=== PATIENT | female | born 1990 | race Caucasian/White ===

== ENCOUNTER → 2021-09-02 | Outpatient (CLI) | payer OTHER ==
[~2021-09-02] MED LIST: ALL DAY ALLERGY10 M2 PO; COLACE 100MG C100 MG PO; IBUPROFEN600 MG PO; LORTAB 5-325 M1 EACH PO
== END ==
LOC: KOH-I 10:44
DX: R05.9 Cough, unspecified (principal)
CPT/HCPCS: 71046

== ENCOUNTER 2021-11-10 12:54 | Outpatient (CLI) | payer OTHER | END 2021-11-10 14:20 | disposition home or self-care (01) | LOC: GENOP 12:54 | DX: O99.891 Other specified diseases and conditions complicating pregnancy (principal); R10.9 Unspecified abdominal pain; Z3A.36 36 weeks gestation of pregnancy | CPT/HCPCS: G0463 ==

== ENCOUNTER 2021-12-07 16:39 | Inpatient (IN) | payer OTHER ==
[~2021-12-07] VITALS: Ht 165.1 cm; Wt 87.5 kg
[2021-12-07 18:26] LABS: HEMOGLOBIN 11.6 gm/dl (12.3-15.3); RED BLOOD COUNT 4.21 M/UL (4.00-5.10); WHITE BLOOD COUNT 11.5 K/UL (4.5-11.0)
[2021-12-07] MEDS ORDERED: FLAGYL 250 MG250 MG PO (18:55)
[2021-12-08] MEDS ORDERED: HEMOCYTE324 MG PO (15:00)
[2021-12-08] MEDS ORDERED: IBUPROFEN800 MG PO (15:00)
[2021-12-09 05:38] LABS: HEMOGLOBIN 10.4 gm/dl (12.3-15.3)
== END 2021-12-09 16:33 | disposition home or self-care (01) | DRG 807 ==
LOC: GENOP 16:39 → CDU 16:58 → OB 16:58
PROVIDERS: Obstetrics & Gynecology; ADMIT Obstetrics & Gynecology
PROC: 4A1HXCZ Monitoring of Products of Conception, Cardiac Rate, External Approach (ICD-10-PCS; 2021-12-07)
PROC: 10E0XZZ Delivery of Products of Conception, External Approach (ICD-10-PCS; principal; 2021-12-08)
PROC: 3E033VJ Introduction of Other Hormone into Peripheral Vein, Percutaneous Approach (ICD-10-PCS; 2021-12-08)
PROC: 10907ZC Drainage of Amniotic Fluid, Therapeutic from Products of Conception, Via Natural or Artificial Opening (ICD-10-PCS; 2021-12-08)
PROC: 3E0234Z Introduction of Serum, Toxoid and Vaccine into Muscle, Percutaneous Approach (ICD-10-PCS; 2021-12-08)
DX: O98.32 Other infections with a predominantly sexual mode of transmission complicating childbirth (principal); Z37.0 Single live birth; O99.344 Other mental disorders complicating childbirth; F41.9 Anxiety disorder, unspecified; Z3A.39 39 weeks gestation of pregnancy; Z28.310 Unvaccinated for COVID-19; O99.334 Smoking (tobacco) complicating childbirth; A59.9 Trichomoniasis, unspecified; F17.210 Nicotine dependence, cigarettes, uncomplicated; O69.1XX0 Labor and delivery complicated by cord around neck, with compression, not applicable or unspecified; Z82.49 Family history of ischemic heart disease and other diseases of the circulatory system; Z80.9 Family history of malignant neoplasm, unspecified; Z83.3 Family history of diabetes mellitus; Z23 Encounter for immunization
CPT/HCPCS: 36415; 81001; 85014; 85018; 85025; 90471; 90715; J2405; J2590; J7120; U0002

== ENCOUNTER → 2022-01-18 | Outpatient (CLI) | payer OTHER ==
[~2022-01-18] MED LIST changes: +FLAGYL 250 MG250 MG PO; +HEMOCYTE324 MG PO; +IBUPROFEN800 MG PO
== END ==
LOC: US 08:18
DX: R10.84 Generalized abdominal pain (principal)
CPT/HCPCS: 76700